=== PATIENT | male | born 1945 | race Caucasian/White ===

== ENCOUNTER 2017-10-01 23:16 | Inpatient (IN) | payer OTHER ==
[~2017-10-01] VITALS: Ht 177.8 cm; Wt 69.4 kg
--- NOTE | ~2017-10-01 | EKG ---
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1945 Requested By: Toro Umanzor Order Number: [id number] MD: Gamaliel Valente Measurements Intervals [place] Rate: 64 P: 80 CO: 189 QRS: -5 QRSD: 90 T: 112 QT: 412 QTc: 425 Interpretive Statements Sinus rhythm Inferior infarct, old Poor R wave progression Baseline wander in lead(s) V1 Compared to ECG 05/08/2013 09:47:55 Poor R wave progression is now present Electronically Signed On 10-04-2017 7:21:55 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
--- NOTE | ~2017-10-01 | EKG ---
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 : 1945 Requested By: Toro Umanzor Order Number: [id number] MD: Gamaliel Valente Measurements Intervals [place] Rate: 68 P: 65 RI: 201 QRS: 16 QRSD: 98 T: 137 QT: 412 QTc: 439 Interpretive Statements Sinus rhythm Consider left atrial enlargement RSR' in V1 or V2, probably normal variant ST and T wave abnormality, consider lateral ischemia Compared to ECG 05/08/2013 09:47:55 Lateral T wave abnormality is more pronounced Electronically Signed On 10-04-2017 7:24:40 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
--- NOTE | ~2017-10-01 | HC ---
[facility] [place] [address] CONSULTATION Name: ETHANVITOR [place] Room #: 362-P [facility] IN M.R.#: [id number] Admission: 10/02/17 Attend Phys: Ty Bennett MD Discharge: Date of : 49 Report #: [id number] THIS REPORT FOR: //name// CC: Norman Bennett DATE OF SERVICE: 10/02/2017 REASON FOR CONSULTATION: Acute kidney injury and hyponatremia. HISTORY OF PRESENT ILLNESS: This is a 72-year-old male who came in overnight through the Emergency Room. He has apparently been having some seizure-like activity. He has been getting weaker with that. He has also had some apparent confusion. He was seen in the Emergency Room. He had numerous laboratory abnormalities and for that reason we are consulted. All of those will be reported below. I have gone into the room to see the patient. He is obtunded at this time. He does respond a bit to touch, but is unable to answer any questions, so at this point the rest of the history is obtained through his old records. PAST MEDICAL HISTORY: He has some longstanding diabetes mellitus. He also has a history of hypertension. He has been on multiple medications for that. He has had a proctocolectomy and an ileostomy. He has had chemotherapy and radiation also for that cancer. He eventually had reanastomosis performed. Numerous records on the electronic medical records from 2012 and 2013 related to that. Upon presentation at this time, he had dramatic laboratory abnormalities including a serum sodium 118, potassium 5.4, chloride 84, bicarbonate 26, BUN 36, creatinine 2.6 and a glucose of 951, calcium was 9.1, albumin was 2.8 with a total protein of 6.9. Urinalysis on presentation showed specific gravity 1.010, pH 5.5 with 2+ protein, 3+ glucose. He had a blood gas, pH of 7.36, paCO2 of 45.7, pO2 of 44.8. It looks like he received some normal saline in the Emergency Room. He was given some insulin. His glucose is corrected very quickly. In fact, it dropped from 951 down to 133 over just 7 hours. With that he has also had labs changed with a serum sodium of up to 135, potassium 3.9, chloride 97, bicarbonate 28, BUN 33, creatinine 2.3. ADDITIONAL PAST MEDICAL HISTORY: He has had a previous stroke. He has also had umbilical hernia repair. He is reported to have some COPD as well as some knee surgery. MEDICATIONS ON ADMISSION: Include Lantus, Symbicort inhaler, Lipitor, Prilosec, Humalog insulin, tamsulosin 0.4 mg daily, lisinopril 20 mg daily, carvedilol 6.2 mg b.i.d., triamterene with hydrochlorothiazide daily, some vitamin D, tramadol, gabapentin 600 mg b.i.d. These are off the list from the Emergency Room as I am unable to talk to anybody else about his actual medications. [address] [address] CONSULTATION Name: VITOR LONG V Room #: 362-P ADM IN M.R.#: [id number] Admission: 10/02/17 Attend Phys: Ty Bennett MD Discharge: Date of : 49 Report #: [id number] ALLERGIES: Listed to CONTRAST DYE and SULFA. FAMILY HISTORY: Noncontributory. SOCIAL HISTORY: The patient lives in [facility]. Apparently, he lives with an ex- who are now back together. He is listed as being retired. REVIEW OF SYSTEMS: Otherwise, unavailable. There are reports in the Emergency Room records that he had seen a neurologist recently this week because of these tremulous and seizure-like activities. PHYSICAL EXAMINATION: GENERAL: A 72-year-old male who is currently obtunded. He does arouse very slightly upon exam, but there is nothing as far as ability to communicate, open eyes, respond directly to my voice. VITAL SIGNS: Blood pressure 104/41, heart rate is 66, temperature 97.8, oxygen saturation 98%. HEENT: Shows pupils that are 3 mm and reactive. Sclerae are nonicteric. Oral mucosa is dry. NECK: Supple. No JVD seen, no adenopathy. CHEST: Fairly clear bilaterally with shallow breath sounds. CARDIOVASCULAR: Heart has a regular rate and rhythm. ABDOMEN: Few bowel sounds are present. Abdomen is soft. Abdominal wall has a doughy consistency. It is not distended, not tender. EXTREMITIES: Show significantly decreased skin turgor. There is no peripheral edema. Again, he is obtunded. Labs noted above. CT of the head was negative for any acute bleed or acute infarct. Chest x-ray is normal. ASSESSMENT: 1. Acute kidney injury. He has prerenal azotemia on top of some chronic kidney disease. He has had severe hyperglycemia and suffered an osmotic diuresis. This has left him volume deplete. I am unaware of what his intake has been of food and fluids. He needs more IV fluids at this time. Blood pressure was transiently low, but is better now. Creatinine level started to come down with his additional fluid replacement. 2. Hyponatremia. Most of this is pseudohyponatremia related to his extremely elevated glucose. We will correct for his glucose. His serum sodium would actually be about 135-136 and in fact, with the rapid correction of his glucose that is exactly where his sodium sits. Looking back, he has had some mild hyponatremia in the past. He is chronically on a thiazide diuretic, which may [facility] [address] [place] [address] CONSULTATION Name: ETHANVITOR V Room #: 362-P ADM IN .R.#: [id number] Admission: 10/02/17 Attend Phys: Ty Bennett MD Discharge: Date of : 49 Report #: [id number] be contributing. With the big change in his glucose and the associated expected change of his serum sodium, I want to put him on some hypotonic IV fluids at a moderate rate. We do not want massive shifts at this time and we certainly do not want to getting hypertonic. 3. Diabetes mellitus with severe hyperglycemia. It is corrected very rapidly. We want to make sure it does not go low. I will target more gradual changes. 4. Prior colon cancer plus multiple surgeries and other treatments. 5. Longstanding diabetes. 6. History of hypertension. We will hold his antihypertensive meds at this time. PLAN: 1. I will increase his IV fluids to the half normal at 150 mL an hour. 2. We will recheck labs several times throughout the day to make sure he is not shifting too rapidly now that his serum glucose has been corrected. 3. I expect further correction in serum creatinine over time. 4. We might want to keep him off his thiazide diuretic long-term. 5. Maintenance of glycemic control. 6. We will follow along closely in the care of this acutely ill patient. <ELECTRONICALLY SIGNED> By: Vicente Ball MD 10/04/17 0722 1143 26 Vicente Ball MD /nt
[~2017-10-01 23:16] MED LIST: ADULT LOW DOSE81 MG PO; AMLODIPINE BESY10 MG; APAP500 PO; ASA81BEC PO; CHANTIX1 MG PO; CO Q-10 WITH L1 EACH PO; CO Q-10200 MG PO; HUMALOG100 UNIT/1 SUBQ; HYDROCODON-ACE1 EAC7 PO; LANTUSSOLASTAR SUBQ; LIPITOR20 MG PO; LISINOPRIL20 MG PO; MULTIVITAMINS PO; NEURONTIN600 MG PO; NORCO 5-325 TA1 EACH PO; PRILOSEC 20 MG20 MG PO; PROAIR HFA8.5 GM INH; SYMBICORT160 MCG/4. INH; TAMSULOSIN HCL0.4 M1 PO; TAMSULOSIN HCL0.4 MG PO; TRAMADOL 50 MG50 MG PO; TYLENOL EX-STR500 M2 PO; ZOLPIDEM TARTRA10 MG PO
[2017-10-01 23:19] VITALS: BP 151/57
[2017-10-01] MEDS ORDERED: BRIVIACT50 MG (23:24)
[2017-10-01] MEDS ORDERED: LISINOPRIL20 MG PO (23:56)
[2017-10-01] MEDS ORDERED: CARVEDILOL6.25 MG (23:57)
[2017-10-01] MEDS ORDERED: MAXZIDE-25 MG1 EACH PO (23:57)
[2017-10-01] MEDS ORDERED: VITAMIN D3400 UNIT PO (23:58)
[2017-10-01] MEDS ORDERED: COQ10-VIT E 201 EACH PO (23:59)
[2017-10-02] VITALS (9 sets, daily range): BP systolic 81–158; BP diastolic 41–81
[2017-10-02] MEDS ORDERED: TRAMADOL 50 MG50 MG PO
[2017-10-02] MEDS ORDERED: NEURONTIN600 MG PO (00:01)
[2017-10-02] MEDS ORDERED: LEVEMIR SUBQ (00:02)
[2017-10-02 00:05] LABS: HEMATOCRIT 34.7 % (42.0-52.0); HEMOGLOBIN 11.9 gm/dL (14.0-18.0); MCH 29.8 pg (26.0-34.0); MCHC 34.2 g/dL (28.0-37.0); MCV 87.3 fL (80.0-100.0); RBC 3.98 mil/uL (4.50-6.00); RDW 12.6 % (10.5-14.5); WBC 11.7 thou/uL (4.0-11.0)
[2017-10-02 00:25] LABS: BUN 36 mg/dL (7-18); CALCIUM 9.1 mg/dL (8.5-10.1); CHLORIDE 84 mmol/L (98-107); CO2 26 mmol/L (21-32); CREATININE 2.6 mg/dL (0.7-1.3); POTASSIUM 5.4 mmol/L (3.5-5.1)
[2017-10-02 00:26] LABS: ALBUMIN 2.8 g/dL (3.4-5.0); SGOT 13 U/L (15-37); SGPT 20 U/L (30-65); TOTAL BILIRUBIN 0.2 mg/dL (<0.1-1.0); TOTAL PROTEIN 6.9 g/dL (6.4-8.2); TROPONIN-I < 0.04 ng/mL (<0.06)
[2017-10-02 00:29] LABS: ANION GAP 8 mmol/L (7-16)
[2017-10-02 00:31] LABS: GLUCOSE 951 mg/dL (74-106); SODIUM 118 mmol/L (136-145)
[2017-10-02 01:18] LABS: BE(vivo) -0.2 mmol/L (-2 to +3); HCO3 25.4 mmol/L (22.0-26.0); PCO2 VENOUS 45.7 mmHg (41.0-51.0); PO2 VENOUS 44.8 mmHg (35.0-45.0)
[2017-10-02 01:26] LABS: URINE BILIRUBIN NEGATIVE (Negative); URINE BLOOD TRACE (Negative); URINE CLARITY SL CLOUDY; URINE COLOR YELLOW; URINE GLUCOSE-RANDOM* 3+ (Negative); URINE KETONES NEGATIVE (Negative); URINE LEUKOCYTES-REFLEX NEGATIVE (Negative); URINE NITRITE-REFLEX NEGATIVE (Negative); URINE PROTEIN (DIPSTICK) 2+ (Negative); URINE UROBILINOGEN 0.2 E.U./dl (0.2-1.0)
[2017-10-02 01:41] LABS: CASTS None Seen /LPF (None Seen); MUCUS None Seen strn/LPF (None Seen); SQUAMOUS 4-10 Moderate /LPF (0-3)
[2017-10-02 01:42] LABS: TRANSITIONAL EPITHEL CELL 0-3 Few /LPF (None Seen); URINE RBC 0-2 Rare /HPF (0-2); URINE WBC-REFLEX 0-5 Rare /HPF (0-5)
[2017-10-02 01:44] LABS: BACTERIA-REFLEX 1-9 Few /HPF (None Seen); CRYSTALS None Seen /LPF (None Seen)
[2017-10-02 05:39] LABS: CALCIUM 9.7 mg/dL (8.5-10.1); CREATININE 2.4 mg/dL (0.7-1.3)
[2017-10-02 05:42] LABS: POTASSIUM 4.2 mmol/L (3.5-5.1)
[2017-10-02 07:52] LABS: HEMATOCRIT 34.7 % (42.0-52.0); HEMOGLOBIN 12.1 gm/dL (14.0-18.0); MCH 29.7 pg (26.0-34.0); RBC 4.09 mil/uL (4.50-6.00); RDW 12.3 % (10.5-14.5); WBC 12.9 thou/uL (4.0-11.0)
[2017-10-02 08:01] LABS: ANION GAP 10 mmol/L (7-16); BUN 33 mg/dL (7-18); CALCIUM 10.1 mg/dL (8.5-10.1); CHLORIDE 97 mmol/L (98-107); CO2 28 mmol/L (21-32); CREATININE 2.3 mg/dL (0.7-1.3); GLUCOSE 133 mg/dL (74-106); POTASSIUM 3.9 mmol/L (3.5-5.1); SODIUM 135 mmol/L (136-145)
[2017-10-02 10:17] LABS: TROPONIN-I < 0.04 ng/mL (<0.06)
[2017-10-02 10:54] LABS: URINE BILIRUBIN NEGATIVE (Negative); URINE BLOOD NEGATIVE (Negative); URINE CLARITY CLEAR; URINE COLOR YELLOW; URINE GLUCOSE-RANDOM* 3+ (Negative); URINE KETONES NEGATIVE (Negative); URINE LEUKOCYTES-REFLEX NEGATIVE (Negative); URINE NITRITE-REFLEX NEGATIVE (Negative); URINE PROTEIN (DIPSTICK) 2+ (Negative); URINE UROBILINOGEN 0.2 E.U./dl (0.2-1.0)
[2017-10-02 12:39] LABS: CALCIUM 9.3 mg/dL (8.5-10.1); CREATININE 2.2 mg/dL (0.7-1.3); POTASSIUM 4.3 mmol/L (3.5-5.1)
[2017-10-02 13:41] LABS: SQUAMOUS None Seen /LPF (0-3)
[2017-10-02 13:42] LABS: AMORPHOUS URATES Moderate /LPF (None Seen); CASTS None Seen /LPF (None Seen); URINE RBC 0-2 Rare /HPF (0-2); URINE WBC-REFLEX 0-5 Rare /HPF (0-5)
[2017-10-02 13:45] LABS: BACTERIA-REFLEX 1-9 Few /HPF (None Seen)
[2017-10-02 21:03] LABS: CALCIUM 9.2 mg/dL (8.5-10.1); POTASSIUM 3.7 mmol/L (3.5-5.1)
[2017-10-03 04:05] VITALS: BP 135/76
[2017-10-03 05:37] LABS: HEMATOCRIT 34.5 % (42.0-52.0); HEMOGLOBIN 11.9 gm/dL (14.0-18.0); MCH 29.3 pg (26.0-34.0); MCHC 34.4 g/dL (28.0-37.0); MCV 85.3 fL (80.0-100.0); RBC 4.04 mil/uL (4.50-6.00); RDW 12.6 % (10.5-14.5)
[2017-10-03 05:49] LABS: ALBUMIN 2.3 g/dL (3.4-5.0); CALCIUM 8.8 mg/dL (8.5-10.1); POTASSIUM 3.3 mmol/L (3.5-5.1); TOTAL BILIRUBIN 0.2 mg/dL (<0.1-1.0); TOTAL PROTEIN 5.8 g/dL (6.4-8.2)
[2017-10-03 05:56] LABS: MAGNESIUM 1.8 mg/dL (1.8-2.4); PHOSPHORUS 3.5 mg/dL (2.5-4.9)
[2017-10-03 09:05] VITALS: BP 144/51
[2017-10-03 11:47] VITALS: BP 142/41
[2017-10-03 16:21] VITALS: BP 174/80
[2017-10-03 19:29] VITALS: BP 198/74
[2017-10-04 00:10] VITALS: BP 155/69
[2017-10-04 03:02] VITALS: BP 138/71
[2017-10-04 07:27] VITALS: BP 152/51
[2017-10-04 07:50] LABS: HEMATOCRIT 31.9 % (42.0-52.0); HEMOGLOBIN 11.1 gm/dL (14.0-18.0); MCH 29.8 pg (26.0-34.0); MCHC 34.7 g/dL (28.0-37.0); MCV 85.9 fL (80.0-100.0); RBC 3.72 mil/uL (4.50-6.00); RDW 12.6 % (10.5-14.5); WBC 10.5 thou/uL (4.0-11.0)
[2017-10-04 08:09] LABS: ALBUMIN 2.1 g/dL (3.4-5.0); CALCIUM 8.9 mg/dL (8.5-10.1); CREATININE 1.9 mg/dL (0.7-1.3); POTASSIUM 4.2 mmol/L (3.5-5.1); TOTAL BILIRUBIN 0.2 mg/dL (<0.1-1.0); TOTAL PROTEIN 5.7 g/dL (6.4-8.2)
[2017-10-04 11:39] VITALS: BP 151/73
[2017-10-04 15:54] VITALS: BP 150/67
[2017-10-04 20:00] VITALS: BP 139/76
[2017-10-05 04:00] VITALS: BP 147/52
[2017-10-05 05:04] LABS: CALCIUM 8.6 mg/dL (8.5-10.1); CREATININE 1.8 mg/dL (0.7-1.3); POTASSIUM 4.2 mmol/L (3.5-5.1)
[2017-10-05 08:25] VITALS: BP 135/76
[2017-10-05] MEDS ORDERED: KEPPRA 500 MG500 M2 PO (08:38)
[2017-10-05 12:11] LABS: GLYCOHEMOGLOBIN (HGB A1C) 18.2 % (4.8-5.6)
[2017-10-05 13:52] VITALS: BP 135/76
[2017-10-05 15:54] VITALS: BP 135/76
[2017-10-05 16:02] VITALS: BP 135/76
== END 2017-10-05 14:39 | disposition home health service (06) | DRG 100 ==
LOC: ER 23:16 → 3W 10-02 00:52 → EROBS 10-02 00:52 → 3W 10-02 01:58 → ENTRNSPT 10-05 14:28 → EDTRNSPTSTS 10-05 14:37 → 3W 10-05 14:39
PROVIDERS: Emergency Medicine; Hospitalist; Internal Medicine Nephrology; Nurse Practitioner
DX: G40.901 Epilepsy, unspecified, not intractable, with status epilepticus (principal); G93.40 Encephalopathy, unspecified; E11.00 Type 2 diabetes mellitus with hyperosmolarity without nonketotic hyperglycemic-hyperosmolar coma (NKHHC); N17.9 Acute kidney failure, unspecified; E87.1 Hypo-osmolality and hyponatremia; M19.90 Unspecified osteoarthritis, unspecified site; J44.9 Chronic obstructive pulmonary disease, unspecified; F17.210 Nicotine dependence, cigarettes, uncomplicated; E11.42 Type 2 diabetes mellitus with diabetic polyneuropathy; R13.10 Dysphagia, unspecified; I95.9 Hypotension, unspecified; I12.9 Hypertensive chronic kidney disease with stage 1 through stage 4 chronic kidney disease, or unspecified chronic kidney disease; N18.9 Chronic kidney disease, unspecified; E11.22 Type 2 diabetes mellitus with diabetic chronic kidney disease; E11.65 Type 2 diabetes mellitus with hyperglycemia; E78.5 Hyperlipidemia, unspecified; K21.9 Gastro-esophageal reflux disease without esophagitis; R31.9 Hematuria, unspecified; E87.6 Hypokalemia; D72.829 Elevated white blood cell count, unspecified; Z85.3 Personal history of malignant neoplasm of breast; Z79.4 Long term (current) use of insulin; Z85.048 Personal history of other malignant neoplasm of rectum, rectosigmoid junction, and anus; Z93.2 Ileostomy status; Z80.0 Family history of malignant neoplasm of digestive organs; Z88.2 Allergy status to sulfonamides; Z91.041 Radiographic dye allergy status; Z79.899 Other long term (current) drug therapy; Z86.73 Personal history of transient ischemic attack (TIA), and cerebral infarction without residual deficits; Z92.21 Personal history of antineoplastic chemotherapy; Z92.3 Personal history of irradiation; Z85.038 Personal history of other malignant neoplasm of large intestine
CPT/HCPCS: 10879